=== PATIENT | female | born 1990 | race Caucasian/White ===

== ENCOUNTER 2024-11-19 17:15 | Outpatient (CLI) | payer OTHER ==
[2024-11-19 17:31] VITALS: BP 123/84
== END 2024-11-19 18:12 | disposition home or self-care (01) ==
LOC: NST 17:15
PROVIDERS: ATTEND Obstetrics & Gynecology
DX: Z34.83 Encounter for supervision of other normal pregnancy, third trimester (principal)

== ENCOUNTER 2024-11-27 14:45 | Inpatient (IN) | payer OTHER ==
[~2024-11-27] VITALS: Ht 160 cm; Wt 101.6 kg
[2024-11-27 17:23] VITALS: BP 125/80; O2SAT 98
[2024-11-27] MEDS ORDERED: MORPHINE SULFATE 4 MG/ML CARTRIDGE IV PRN (18:00)
[2024-11-27] MEDS ORDERED: RINGERS SOLUTION,LACTATED 1,000 ML IV SCH (18:00)
[2024-11-27] MEDS ORDERED: LEXAPRO5 MG PO (18:38)
[2024-11-27] MEDS ORDERED: PRENATAL TABLE1 EAC1 (18:38)
[2024-11-27 18:39] LABS: BASO % 0.2 % (0.1-1.2); EOS # 0.09 (0.04-0.54); EOS % 1.0 % (0.7-7.0); LYMPH # 1.57 (1.18-3.74); LYMPH % 18.0 % (19.3-53.1); MEAN PLATELET VOLUME 11.70 fl (9.4-12.4); MONO # 0.59 (0.24-0.82); MONO % 6.8 % (4.7-12.5); NEUT # 6.40 (1.56-6.13); NEUT % 73.5 % (34.0-71.1); RED CELL DISTRIBUTION WIDTH 14.1 % (11.6-14.4)
[2024-11-27 19:11] LABS: ALT/SGPT 17.0 U/L (12-78); AST/SGOT 21.0 U/L (15-37); BILIRUBIN TOTAL 0.19 mg/dL (0.3-1.2); BUN CREA RATIO 26.0 (7.0-25.0); CREATININE SERUM 0.5 mg/dL (0.55-1.02); GFR 139.6; GLOBULINA 3.9 G/DL (2.4-3.5); GLUCOSE FASTING 79.0 mg/dL (65-100); INR < 0.93; OSMOLALITY SERUM 277.0 MOSM/KG (275-295)
[2024-11-27 23:30] VITALS: BP 127/75
[2024-11-28] VITALS (8 sets, daily range): BP systolic 121–135; BP diastolic 61–92
[2024-11-28] MEDS ORDERED: OXYTOCIN 500 ML IV ONE (08:00)
[2024-11-28] MEDS ORDERED: ERYTHROMYCIN BASE OPHT 1GM EACH TUBE OP ONE (10:58)
[2024-11-28] MEDS ORDERED: LIDOCAINE HCL 1% 10ML VIAL ONE (10:59)
[2024-11-28] MEDS ORDERED: OXYTOCIN 20 UNITS/1000ML RL PIGGYBAG IV ONE (10:59)
[2024-11-28] MEDS ORDERED: CHLORHEXIDINE GLUCONATE 120 ML BOTTLE TOP ONE (10:59)
[2024-11-28] MEDS ORDERED: CHLORHEXIDINE GLUCONATE 120 ML BOTTLE TOP SCH (14:00)
[2024-11-28] MEDS ORDERED: NALOXONE HCL 0.4 MG/ML AMPUL IM ONE (14:00)
[2024-11-28] MEDS ORDERED: OXYTOCIN 1,000 ML IV ONE (14:00)
[2024-11-28] MEDS ORDERED: DOCUSATE SODIUM 100MG CAP PO SCH (17:00)
[2024-11-28] MEDS ORDERED: FF) RHO(D) IMMUNE GLOBULIN (POM) IM NR (19:30)
[2024-11-29] VITALS: BP 133/82
[2024-11-29] MEDS ORDERED: OxyCODONE HCL 5 MG TABLET (ROXICODONE) PO PRN (01:15)
[2024-11-29 06:13] LABS: BASO % 0.2 % (0.1-1.2); EOS # 0.04 (0.04-0.54); EOS % 0.4 % (0.7-7.0); LYMPH # 1.95 (1.18-3.74); LYMPH % 18.6 % (19.3-53.1); MEAN PLATELET VOLUME 11.40 fl (9.4-12.4); MONO # 0.88 (0.24-0.82); MONO % 8.4 % (4.7-12.5); NEUT # 7.57 (1.56-6.13); NEUT % 72.1 % (34.0-71.1); RED CELL DISTRIBUTION WIDTH 14.5 % (11.6-14.4)
[2024-11-29] MEDS ORDERED: FF) RHO(D) IMMUNE GLOBULIN (POM) IM NR (08:00)
[2024-11-29] MEDS ORDERED: IRON FUM,PS/FOLIC ACID/VITC/B3 1 CAP CAPSULE PO SCH (09:00)
[2024-11-29] MEDS ORDERED: PNV,CALCIUM 72/IRON/FOLIC ACID 1 TAB TABLET PO SCH (09:00)
[2024-11-29 09:22] VITALS: BP 140/73
[2024-11-29 16:01] VITALS: BP 107/74
[2024-11-30 00:26] VITALS: BP 120/68
[2024-11-30 08:47] VITALS: BP 134/83
== END 2024-11-30 12:11 | disposition home or self-care (01) | DRG 807 ==
LOC: LDR 17:32 → OB/GYN 11-28 13:59
PROVIDERS: Obstetrics & Gynecology; Obstetrics & Gynecology Gynecology; ADMIT Obstetrics & Gynecology; ATTEND Obstetrics & Gynecology
PROC: 4A1HXCZ Monitoring of Products of Conception, Cardiac Rate, External Approach (ICD-10-PCS; 2024-11-27)
PROC: 10E0XZZ Delivery of Products of Conception, External Approach (ICD-10-PCS; principal; 2024-11-28)
PROC: 0W8NXZZ Division of Female Perineum, External Approach (ICD-10-PCS; 2024-11-28)
DX: O69.81X0 Labor and delivery complicated by cord around neck, without compression, not applicable or unspecified (principal); Z37.0 Single live birth; Z3A.37 37 weeks gestation of pregnancy

== ENCOUNTER 2024-11-27 16:33 | Outpatient (CLI) | payer OTHER ==
[2024-11-27] MEDS ORDERED: LEXAPRO5 MG PO (18:38)
[2024-11-27] MEDS ORDERED: PRENATAL TABLE1 EAC1 (18:38)
== END 2024-11-27 17:30 | disposition home or self-care (01) ==
LOC: NST 16:33
PROVIDERS: ATTEND Obstetrics & Gynecology
DX: Z34.83 Encounter for supervision of other normal pregnancy, third trimester (principal)